=== PATIENT | female | born 1935 | race Caucasian/White ===

== ENCOUNTER → 2016-08-02 | Outpatient (CLI) | payer MEDICARE, BC ==
[~2016-08-02] MED LIST: AMLODIPINE BESY10 MG PO; ASPIRIN81 M2 PO; AZITHROMYCIN500 MG PO; BACTROBAN15 GM TOP; CALCIUM + D 6001 TA1 PO; CALCIUM 500 + D1 TAB PO; CALCIUM 600 + D1 TAB PO; CALCIUM 600-VI1 EACH PO; CALCIUM500 M1 PO; CENTRUM PO; CYMBALTA PO; DESYREL100 MG PO; DICLOXAXILLIN250 MG PO; DOMPERIDONE PO; EFFEXOR75 M3 PO; EFFEXOR75 MG PO; GABAPENTIN600 MG PO; GAVISCON1 TAB PO; GRALISE1 EACH PO; HIBICLENS 4% L120 ML TOP; HYDRALAZINE HC100 MG PO; LANSOPRAZOLE30 MG PO; LISINOPRIL20 MG PO; LOSARTAN POTASS50 MG PO; MEDROL4 MG/DOSE- PO; MOBIC15 MG PO; MULTI-DAY VITAM1 TAB PO; MULTI-DAY1 TAB PO; MULTI-VITAMIN1 EAC1 PO; MULTIVITAMINS1 EAC3 PO; NEXIUM PO; NORVASC PO; NORVASC10 MG PO; OMEPRAZOLE40 M1 PO; OMEPRAZOLE40 MG PO; PATIENT'S PHARMACY; PREVACID PO; PRILOSEC PO; PRISTIQ100 MG PO; RELAFEN PO; SILVADENE TOP; SKELAXIN PO; TEMOVATE30 GM TOP; TOPROL XL100 MG PO; TOPROL XL50 MG PO; TRAZODONE PO; VICODIN 5/500 T1 TAB PO; ZOFRAN ODT4 MG PO; ZOFRAN PO
--- NOTE | ~2016-08-02 | CT71 ---
[facility] A Service of [facility] RADIOLOGY TEXT RESULTS PATIENT: JOVANA KILPATRICK LOCATION: [facility] : 37 UNIT #: [id number] AGE: [address]: Tim Lozano MD SEX: F ORDER DR: [id number] [facility] [address]. [place], [place] [address] [id number] O MR#: [id number] [facility] #: [id number] NAME: JOVANA KILPATRICK. : 1935 SEX: F STUDY DATE/TIME: 08/02/2016 9:21 UNIT: [facility] ROOM: STUDY DESCRIPTION: CT Head Wo Contrast Attending Physician: Tim Lozano M.D. Referring Physician: Tim Lozano M.D. Ordering Physician: Tim Lozano M.D. Primary Care Physician: Tim Lozano M.D. MEDICAL IMAGING REPORT This report is preliminary unless electronic signature is present EXAM Head CT no contrast, 08/02/2016 PROCEDURE Axial unenhanced head CT. This CT exam was performed with one or more of the following radiation dose reduction techniques: Automatic exposure control, adjustment of mA and/or kV according to patient size, and iterative reconstruction. COMPARISON None. CLINICAL HISTORY Memory loss for 1 year. Headache for 1 year. FINDINGS There are nonspecific white matter changes, but there is no hemorrhage or hydrocephalus or extraaxial fluid collection. There is minimal volume loss but certainly not greater than expected for age. The extracranial soft tissues are unremarkable. The skull base and calvarium are normal. IMPRESSION Nonspecific probably small vessel-type white matter change, no hemorrhage or mass. There is volume loss as well but both are fairly minimal for patient age. No acute findings. Dictated by... Zacarias Nixon M.D. THIS IS AN ELECTRONICALLY VERIFIED REPORT Zacarias Nixon M.D. at 08/04/2016 11:48 AM TEV/psc [facility] A Service of [facility] RADIOLOGY TEXT RESULTS PATIENT: JOVANA KILPATRICK LOCATION: [facility] #: [id number] : 37 UNIT #: [id number] AGE: [address]: Tim Lozano MD SEX: F ORDER DR: TD: 08/02/2016 22:07 JOB #: [id number] MEDICAL IMAGING REPORT COPY
--- NOTE | ~2016-08-02 | MY11 ---
[facility] A Service of [facility] RADIOLOGY TEXT RESULTS PATIENT: JOVANA KILPATRICK LOCATION: [facility] : 37 UNIT #: [id number] AGE: [address]: Tim Lozano MD SEX: F ORDER DR: [id number] [place] [id number] [facility]. [place], [place] [address] [id number] O MR#: [id number] Acc #: [id number] NAME: JOVANA KILPATRICK. : 1935 SEX: F STUDY DATE/TIME: 08/02/2016 10:17 UNIT: [facility] ROOM: STUDY DESCRIPTION: MY Mammogram Screening Dig Rishabh Attending Physician: Tim Lozano M.D. Referring Physician: Tim Lozano M.D. Ordering Physician: Tim Lozano M.D. Primary Care Physician: Tim Lozano M.D. MEDICAL IMAGING REPORT This report is preliminary unless electronic signature is present EXAM Bilateral digital screening with CAD INDICATION routine screening. No current complaints. No family history of breast cancer. COMPARISON 03/04/2015, 03/01/2014 and 07/15/2010 FINDINGS MLO and CC digital views of each breast were obtained. There are also exaggerated lateral CC views of each breast. The breasts have scattered fibroglandular densities. There are no masses or abnormal calcifications. There has been no change. There is a left-sided pacemaker. IMPRESSION No change and no evidence of malignancy. Patients over the age of 40 are entered into a reminder system with target due date for the next mammogram. A result letter will also be sent to the patient. BIRADS: 1 Negative Dictated by... Prabhjot Velasquez M.D. THIS IS AN ELECTRONICALLY VERIFIED REPORT Prabhjot Velasquez M.D. at 08/02/2016 4:54 PM Annabella TD: 08/02/2016 16:46 [facility] A Service [facility] RADIOLOGY TEXT RESULTS PATIENT: JOVANA KILPATRICK LOCATION: [facility] : 37 UNIT #: [id number] AGE: [address]: Tim Lozano MD SEX: F ORDER DR: BJ #: [id number] MEDICAL IMAGING REPORT COPY
--- NOTE | ~2016-08-02 | CT52 ---
[facility] A Service of [facility] RADIOLOGY TEXT RESULTS PATIENT: JOVANA KILPATRICK LOCATION: [facility] : 37 UNIT #: [id number] AGE: [address]: Tim Lozano MD SEX: F ORDER DR: [id number] [facility] [address] [facility]. [place], [place] [address] [id number] O MR#: [id number] [facility] #: [id number] NAME: JOVANA KILPATRICK. : 1935 SEX: F STUDY DATE/TIME: 08/02/2016 9:31 UNIT: [facility] ROOM: STUDY DESCRIPTION: CT Cervical Spine Wo Cont Attending Physician: Tim Lozano M.D. Referring Physician: Tim Lozano M.D. Ordering Physician: Tim Lozano M.D. Primary Care Physician: Tim Lozano M.D. MEDICAL IMAGING REPORT This report is preliminary unless electronic signature is present EXAM Cervical spine CT, no contrast, 08/02/2016 PROCEDURE Axial unenhanced cervical spine CT with multiplanar reformats. This CT exam was performed with one or more of the following radiation dose reduction techniques: Automatic exposure control, adjustment of mA and/or kV according to patient size, and iterative reconstruction. COMPARISON None. CLINICAL HISTORY Intermittent headache and neck pain for 1 year. FINDINGS There is a very slight reversal of lordosis centered at 5-6 but alignment is otherwise normal. There is loss of disc height and degenerative change at 5-6 and 6-7. There is no fracture or aggressive appearing bone erosion or destruction. There are mild spinal degenerative changes without acute abnormality. At 2-3, the canal and foramina are normal. At 3-4, there is no canal stenosis and minimal bilateral foraminal narrowing. At 4-5, there is no canal or foraminal stenosis. At 5-6, there is minimal canal narrowing and mild bilateral foraminal narrowing. [facility] A Service of [facility] RADIOLOGY TEXT RESULTS PATIENT: JOVANA KILPATRICK [facility] #: [id number] : 37 UNIT #: [id number] AGE: [address]: Tim Lozano MD SEX: F ORDER DR: At 6-7, there is minimal canal narrowing and dlwg-lq-guqkluau left and mild or uvem-og-kpmjowjs right foraminal narrowing. At 7-1, there is no canal or foraminal stenosis. IMPRESSION Degenerative changes as above, no acute-appearing abnormality at any level. Dictated by... Zacarias Nixon M.D. THIS IS AN ELECTRONICALLY VERIFIED REPORT Zacarias Nixon M.D. at 08/04/2016 11:48 AM TEV/simón TD: 08/03/2016 03:35 JOB #: [id number] MEDICAL IMAGING REPORT COPY
== END | disposition home or self-care (01) ==
LOC: CCAT 08:20
DX: Z12.31 Encounter for screening mammogram for malignant neoplasm of breast (principal); R41.3 Other amnesia; M50.30 Other cervical disc degeneration, unspecified cervical region; M47.812 Spondylosis without myelopathy or radiculopathy, cervical region
CPT/HCPCS: 70450; 72125; G0202

== ENCOUNTER 2016-08-21 20:51 | Emergency (ER) | payer MEDICARE, BC ==
[~2016-08-21 20:51] MED LIST changes: -ASPIRIN81 M2 PO; -AZITHROMYCIN500 MG PO; -CALCIUM500 M1 PO; -DESYREL100 MG PO; -EFFEXOR75 M3 PO; -HYDRALAZINE HC100 MG PO; -LOSARTAN POTASS50 MG PO; -MULTIVITAMINS1 EAC3 PO; -PATIENT'S PHARMACY; -PRILOSEC PO; -TOPROL XL50 MG PO
== END 2016-08-21 21:30 | disposition home or self-care (01) ==
LOC: CFTX 20:51
DX: L29.9 Pruritus, unspecified (principal); T46.1X5A Adverse effect of calcium-channel blockers, initial encounter; I10 Essential (primary) hypertension; K21.9 Gastro-esophageal reflux disease without esophagitis; Z90.49 Acquired absence of other specified parts of digestive tract; Z90.89 Acquired absence of other organs; Z79.899 Other long term (current) drug therapy; Z88.2 Allergy status to sulfonamides; Z88.8 Allergy status to other drugs, medicaments and biological substances
CPT/HCPCS: 99282

== ENCOUNTER → 2017-01-12 | Outpatient (CLI) | payer MEDICARE, BC ==
[~2017-01-12] MED LIST changes: +ASPIRIN81 M2 PO; +AZITHROMYCIN500 MG PO; +CALCIUM500 M1 PO; +DESYREL100 MG PO; +EFFEXOR75 M3 PO; +HYDRALAZINE HC100 MG PO; +LOSARTAN POTASS50 MG PO; +MULTIVITAMINS1 EAC3 PO; +PATIENT'S PHARMACY; +PRILOSEC PO; +TOPROL XL50 MG PO
--- NOTE | ~2017-01-12 | CT2 ---
[facility] A Service of [facility] RADIOLOGY TEXT RESULTS PATIENT: JOVANA KILPATRICK LOCATION: [facility] : 37 UNIT #: [id number] AGE: [address]: Tim Lozano MD SEX: F ORDER DR: [id number] [facility] [address] [place], [place] [address] [id number] O MR#: [id number] Acc #: [id number] NAME: JOVANA KILPATRICK. : 1935 SEX: F STUDY DATE/TIME: 01/12/2017 14:22 UNIT: [facility] ROOM: STUDY DESCRIPTION: CT Abd and Pelv W Cont Attending Physician: Tim Lozano M.D. Referring Physician: Tim Lozano M.D. Ordering Physician: Tim Lozano M.D. Primary Care Physician: Tim Lozano M.D. MEDICAL IMAGING REPORT This report is preliminary unless electronic signature is present EXAM CT abdomen and pelvis. INDICATIONS Right inguinal pain for 2 months. Increasing in severity. Right lower quadrant abdominal pain for [address] of the abdomen and pelvis with p.o. and IV contrast (100 mL Isovue-370 IV contrast). Coronal and sagittal reconstructions were obtained. This CT exam was performed with one or more of the following radiation dose reduction techniques: automatic exposure control, adjustment of mA and/or kV according to patient size, and iterative reconstruction. COMPARISON CT abdomen and pelvis dated 01/20/2016 and 07/31/2015. FINDINGS There is some parenchymal scarring or atelectasis in both lung bases. The solid abdominal organs are within normal. The gallbladder is surgically absent. The bowel is not distended. No pathologically enlarged retroperitoneal or mesenteric lymph nodes. Abdominal aorta is normal in caliber. PELVIS: No pelvic mass. The bladder is unremarkable. The uterus is surgically absent. Ovaries are small. No enlarged pelvic or inguinal lymph nodes. There is generalized osteopenia of the axial skeleton. No acute osseous abnormalities. IMPRESSION [facility] A Service of [facility] RADIOLOGY TEXT RESULTS PATIENT: JOVANA KILPATRICK LOCATION: [facility] : 37 UNIT #: [id number] AGE: [address]: Tim Lozano MD SEX: F ORDER DR: No acute findings in the abdomen or pelvis. No findings to account for the right-sided abdominal pain/right inguinal pain. Dictated by... Zbigniew Angel M.D. THIS IS AN ELECTRONICALLY VERIFIED REPORT Zbigniew Angel M.D. at 01/13/2017 8:41 AM Tana TD: 01/12/2017 19:04 JOB #: [id number] MEDICAL IMAGING REPORT Page 1 of 1 COPY
[2017-01-12 14:01] LABS: POC - CREATININE 0.83 mg/dL (0.44-1.03); POC - GFR >60.0 mL/min (>60)
== END | disposition home or self-care (01) ==
LOC: CCAT 13:07
PROVIDERS: Internal Medicine
DX: R10.11 Right upper quadrant pain (principal); R11.2 Nausea with vomiting, unspecified; R19.7 Diarrhea, unspecified
CPT/HCPCS: 74177; 82565; Q9967

== ENCOUNTER 2017-01-31 08:26 | Observation (INO) | payer MEDICARE, BC ==
[~2017-01-31] VITALS: Ht 167.6 cm; Wt 81.6 kg
--- NOTE | ~2017-01-31 | EKG ---
PATIENT: JOVANA KILPATRICK UNIT #: [id number] Ventricular Rate: 89 BPM Atrial Rate: 61 BPM QRS Duration: 90 ms Q-T Interval: 268 ms QTC Calculation(Bezet): 326 ms P [place]: 12 degrees Calculated R [place]: -15 degrees Calculated T [place]re: 48 degrees Diagnosis Line: Normal sinus rhythm Diagnosis Line: pacemaker malfunction,failure to sense by Diagnosis Line: theatrial lead Diagnosis Line: Nonspecific T wave abnormality Diagnosis Line: Abnormal ECG Diagnosis Line: When compared with ECG of 31-JAN-2017 09:57, Diagnosis Line: (unconfirmed) Diagnosis Line: pacemaker malfunction is new Diagnosis Line: Confirmed by VERITO MENDEZ MD ([id number]) on 02/02/2017 Diagnosis Line: 4:50:32 PM INTERPRETING MD: VANESSA GONSALEZ
--- NOTE | ~2017-01-31 | EKG ---
PATIENT: JOVANA KILPATRICK UNIT #: [id number] Ventricular Rate: 62 BPM Atrial Rate: 62 BPM P-R Interval: 258 ms QRS Duration: 90 ms Q-T Interval: 454 ms QTC Calculation(Bezet): 460 ms P [place]: 54 degrees Calculated R [place]: -22 degrees Calculated T [place]: 54 degrees Diagnosis Line: Atrial-paced rhythm with prolonged AV conduction Diagnosis Line: Abnormal ECG Diagnosis Line: When compared with ECG of 31-JAN-2017 08:35, Diagnosis Line: (unconfirmed) Diagnosis Line: Electronic atrial pacemaker has replaced Diagnosis Line: Electronic ventricular pacemaker Diagnosis Line: Vent. rate has decreased BY 41 BPM Diagnosis Line: Confirmed by TANYA HOLLIS MD ([id number]) on 01/31/2017 Diagnosis Line: 2:07:25 PM INTERPRETING MD: TELMA GONSALEZ
--- NOTE | ~2017-01-31 | EKG ---
PATIENT: JOVANA KILPATRICK UNIT #: [id number] Ventricular Rate: 70 BPM Atrial Rate: 70 BPM P-R Interval: 148 ms QRS Duration: 88 ms Q-T Interval: 428 ms QTC Calculation(Bezet): 462 ms P [place]: 48 degrees Calculated R [place]: -3 degrees Calculated T [place]: 40 degrees Diagnosis Line: Normal sinus rhythm Diagnosis Line: Normal ECG Diagnosis Line: When compared with ECG of 31-JAN-2017 13:27, Diagnosis Line: (unconfirmed) Diagnosis Line: Nonspecific T wave abnormality, improved in Diagnosis Line: Inferior leads Diagnosis Line: Nonspecific T wave abnormality no longer evident Diagnosis Line: in Anterolateral leads Diagnosis Line: QT has lengthened Diagnosis Line: pacemaker function is not seen Diagnosis Line: Confirmed by VERITO MENDEZ MD ([id number]) on 02/02/2017 Diagnosis Line: 4:53:42 PM INTERPRETING MD: VANESSA GONSALEZ
--- NOTE | ~2017-01-31 | CR63 ---
[facility] A Service of [facility] RADIOLOGY TEXT RESULTS PATIENT: JOVANA KILPATRICK LOCATION: [place] [address] : 37 UNIT #: [id number] AGE: [address]: Jw Velazco MD SEX: F ORDER DR: [id number] [facility] [address] [place], [place] [address] [id number] E MR#: [id number] Acc #: [id number] NAME: JOVANA KILPATRICK. : 1935 SEX: F STUDY DATE/TIME: 01/31/2017 10:33 UNIT: [facility] ROOM: STUDY DESCRIPTION: CR Chest 2 View Attending Physician: Seun Askew M.D. Ordering Physician: Seun Askew M.D. Primary Care Physician: Tim Lozano M.D. MEDICAL IMAGING REPORT This report is preliminary unless electronic signature is present EXAM Chest PA and lateral, 01/31/2017 HISTORY Right side chest pain and shortness of breath beginning this morning at 02:00 a.m. Benign essential hypertension FINDINGS The cardiac and mediastinal structures are stable compared with early earlier today at 08:52 a.m. Cardiac pacemaker is unchanged. There is poor inspiratory result with decrease in the atelectasis or infiltrate at the right lung base. Atelectatic changes left base. The upper lungs are clear. No pneumothorax. IMPRESSION Decrease in the atelectasis or infiltrate at the right lung base compared with earlier today at 08:52 a.m. Dictated by... Harvinder Adames M.D. THIS IS AN ELECTRONICALLY VERIFIED REPORT Harvinder Adames M.D. at 02/01/2017 10:34 AM PATRICIO/elliott TD: 01/31/2017 10:55 JOB #: [id number] MEDICAL IMAGING REPORT Page 1 of 1 COPY
--- NOTE | ~2017-01-31 | US84 ---
[id number] [facility] [address] [place], [place] [address] [id number] I MR#: [id number] Acc #: [id number] NAME: JOVANA KILPATRICK : 1935 SEX: F STUDY DATE/TIME: 02/01/2017 13:35 UNIT: [facility] ROOM: 575 STUDY DESCRIPTION: US LE Veins Complete Rishabh Stdy Attending Physician: Jw Velazco M.D. Ordering Physician: Tim Lozano M.D. Primary Care Physician: Tim Lozano M.D. MEDICAL IMAGING REPORT This report is preliminary unless electronic signature is present EXAM Lower extremity venous ultrasound bilateral, 02/01/2017. HISTORY Bilateral pain 2 months. TECHNIQUE Venous ultrasound examination of both lower extremities was performed using grayscale, spectral Doppler and color flow Doppler imaging. FINDINGS The examination is negative. There is no evidence of deep venous thrombus from the groin to the lower calf bilaterally. Visualized greater saphenous veins are also patent. IMPRESSION Negative examination. No evidence of lower extremity deep venous thrombosis. Dictated by... Geo Muro M.D. THIS IS AN ELECTRONICALLY VERIFIED REPORT Geo Muro M.D. at 02/02/2017 6:17 PM JOSEPH/yue TD: 02/01/2017 21:48 JOB #: [id number] MEDICAL IMAGING REPORT Page 1 of 1 COPY
--- NOTE | ~2017-01-31 | HP ---
Unit #: [id number] #: [id number] Patient: JOVANA KILPATRICK [id number] [place], [place] [address] [id number] I MR#: [id number] NAME: JOVANA KILPATRICK. ROOM: 67856 Age: 82 Sex: F Admission Date: 01/31/2017 : 1935 Attending Physician: Jw Velazco M.D. Primary Care Physician: Tim Lozano M.D. HISTORY AND PHYSICAL REASON FOR ADMISSION Chest pain. HISTORY OF PRESENT ILLNESS The patient is an 82-year-old, female who has a history of syncope with significant bradycardia, status post permanent pacemaker in July 2015. She had a stress test done in February of last year that was negative for ischemia. Patient presents with a two-day history of what she describes as an intermittent sharp pain in the right chest radiating up into the right neck and back. She states that there are no ameliorating factors. Sometimes it gets worse with movement. It did get worse with inspiration. She now has a constant heaviness in the right chest since coming to the emergency room. PAST MEDICAL HISTORY Significant for syncope, status post permanent pacemaker for bradyarrhythmias and pauses, hypertension, hyperlipidemia, GERD, spinal stenosis, stress test February 2016 negative for ischemia, left lower extremity small cell carcinoma. SOCIAL HISTORY Patient is an ex-smoker of many years. No alcohol or drug abuse. FAMILY HISTORY With sisters that of coronary artery disease. DIAGNOSTIC STUDIES LABORATORY: White blood cell count 9.5, hemoglobin 14.5, hematocrit 42.5, platelet count 183, sodium 141, potassium 4.1, chloride 104, CO2 27, BUN 16, creatinine 0.6, glucose 107. IMAGING: Chest x-ray shows infiltrate versus atelectasis in the right lower lobe. ALLERGIES Allergy to lidocaine and sulfa. HOME MEDICATIONS Gabapentin 600 mg daily, Prilosec 40 mg daily, hydralazine 100 mg b.i.d., Effexor 75 mg at bedtime, Desyrel 200 mg at bedtime, losartan 50 mg b.i.d., Toprol XL 100 mg b.i.d., multivitamin daily, calcium every a.m. PHYSICAL EXAMINATION GENERAL: Patient is awake and alert in no apparent distress. Color is Unit #: [id number] #: [id number] Patient: JOVANA KILPATRICK. SKIN: Skin is warm and dry. VITAL SIGNS: Afebrile, heart rate 61, blood pressure 186/87. HEENT: Normal carotid upstrokes. No auscultated bruit. Negative JVD lying supine. Negative hepatojugular reflux. CHEST: Respirations are regular and unlabored at rest. Bilateral breath sounds have good air entry throughout lung hendrickson. No crackles, rubs, or wheezes are heard. HEART: S1 and S2. Regular rate and rhythm. No murmurs, rubs, or gallops. ABDOMEN: Soft, nontender, and nondistended. Positive bowel sounds in all four quadrants. No ascites noted. NEUROLOGICAL: No focal motor or sensory deficits. IMPRESSION 1. Chest pain/angina pectoris. 2. Possible right lower lobe pneumonia. 3. Pacemaker malfunction. 4. Hypertension. 5. Hyperlipidemia. 6. Family history of coronary disease. PLAN Will start on IV Rocephin for possible pneumonia. Start topical nitrates. IV morphine for the pain. Therapeutic dose of Lovenox. Aspirin. Will rule out for ME with serial cardiac enzymes. Symptoms could be that of angina given she has a negative stress test, but is still having pain. Recommend coronary angiography. The risks and benefits have been discussed such as (1) , arrhythmia, ME, CVA, bleeding, and . Patient is agreeable. Will ask Dr. Lozano to see in a.m. for medical management. Dictated by Nikki Barajas APRN for Maria Antonia Toro/mike TD: 01/31/2017 13:17 JOB #: [id number] HISTORY AND PHYSICAL Page 1 of 1 X X HISTORY AND PHYSICAL
--- NOTE | ~2017-01-31 | EKG ---
PATIENT: JOVANA KILPATRICK UNIT #: [id number] Ventricular Rate: 105 BPM Atrial Rate: 105 BPM QRS Duration: 28 ms Q-T Interval: 208 ms QTC Calculation(Bezet): 274 ms P [place]: 75 degrees Calculated R [place]: 36 degrees Calculated T [place]: 93 degrees Diagnosis Line: Ventricular-paced rhythm with frequent AV Diagnosis Line: dual-paced complexes and with frequent Premature Diagnosis Line: ventricular complexes Diagnosis Line: Abnormal ECG Diagnosis Line: When compared with ECG of 31-JAN-2017 09:56, Diagnosis Line: (unconfirmed) Diagnosis Line: Premature ventricular complexes are now Present Diagnosis Line: Premature supraventricular complexes are no longer Diagnosis Line: Present Diagnosis Line: Vent. rate has increased BY 12 BPM Diagnosis Line: Confirmed by TANYA HOLLIS MD ([id number]) on 01/31/2017 Diagnosis Line: 2:07:33 PM INTERPRETING MD: TELMA GONSALEZ
--- NOTE | ~2017-01-31 | CR72 ---
[facility] A Service of [facility] RADIOLOGY TEXT RESULTS PATIENT: JOVANA KILPATRICK LOCATION: [place] [address] : 37 UNIT #: [id number] AGE: [address]: Jw Velazco MD SEX: F ORDER DR: [id number] [facility] [address] [place], [place] [address] [id number] E MR#: [id number] Acc #: [id number] NAME: JOVANA KILPATRICK. : 1935 SEX: F STUDY DATE/TIME: 01/31/2017 8:52 UNIT: [facility] ROOM: STUDY DESCRIPTION: CR Chest Single View Portable Attending Physician: Seun Askew M.D. Ordering Physician: Seun Askew M.D. Primary Care Physician: Tim Lozano M.D. MEDICAL IMAGING REPORT This report is preliminary unless electronic signature is present EXAM Portable chest, 01/31/2017 HISTORY Sharp right side chest pain beginning today. Benign essential hypertension FINDINGS Mild cardiac enlargement is stable compared with 08/01/2015. Cardiac pacemaker leads are in the right atrium and right ventricle. There is no pneumothorax. There is poor inspiratory result and elevation of the right hemidiaphragm with infiltrate or atelectasis in the right lower lobe and there is discoid atelectasis at the left base. The upper lungs are clear. There are no pleural effusions. IMPRESSION 1. Stable cardiac enlargement compared with 08/01/2015. Cardiac pacemaker leads right atrium and right ventricle. No pneumothorax. 2. Poor inspiratory result and elevation of the right hemidiaphragm with infiltrate and/or atelectasis right lower lobe. Dictated by... Harvinder Adames M.D. THIS IS AN ELECTRONICALLY VERIFIED REPORT Harvinder Adames M.D. at 02/01/2017 10:34 AM Garret TD: 01/31/2017 09:28 JOB #: [id number] MEDICAL IMAGING REPORT Page 1 of 1 COPY
--- NOTE | ~2017-01-31 | CO ---
Unit #: [id number] #: [id number] Patient: JOVANA KILPATRICK [id number] [address] [place], [place] [address] [id number] I MR#: [id number] NAME: JOVANA KILPATRICK. ROOM: 575 Age: 82 Sex: F Admission Date: 01/31/2017 : 1935 Attending Physician: Jw Velazco M.D. Primary Care Physician: Tim Lozano M.D. 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 It is in the right axillary/right upper chest area anteriorly. It seems to be worse with cough, worse with deep breath. In the emergency room, she was evaluated, had negative cardiac enzymes, unremarkable EKG. She was given nitroglycerin as well as Maalox without any relief. She has had chest pain off and on overnight. Was admitted by cardiology. Repeat cardiac enzymes remained within normal limits. EKG this morning is completely within normal limits. She is scheduled for a heart cath today with results to follow. The patient has no other complaints on review of systems. She has had no recent trauma, fever, cough or any other significant findings. PAST MEDICAL HISTORY She has stated allergies to lidocaine, sulfa drugs, nitroglycerin. MEDICATIONS Her medications prior to admission: 1. Gabapentin 600 mg p.o. q. h.s. 2. Prilosec 40 mg p.o. daily. 3. Hydralazine 100 mg b.i.d. 4. Effexor XR 75 mg daily. 5. Desyrel 200 mg q. h.s. 6. Losartan 50 mg b.i.d. 7. Toprol XL 100 mg b.i.d. 8. Multivitamins, 1 daily. 9. Calcium, 1 daily. PAST MEDICAL HISTORY 1. Chronic insomnia. 2. Lumbar spine stenosis. 3. Cervical spinal stenosis. 4. GE reflux disease. 5. Fibromyalgia syndrome. 6. Sinus arrest requiring permanent pacemaker. 7. Hypertension. PAST SURGICAL HISTORY 1. Partial hysterectomy. 2. Cholecystectomy. Unit #: [id number] #: [id number] Patient: JOVANA KILPATRICK 3. Appendectomy. 4. Polypectomy. 5. Permanent pacemaker. SOCIAL HISTORY , not employed. Nonsmoker, nondrinker. No street drug use. FAMILY HISTORY Noncontributory. PHYSICAL EXAM GENERAL: She is awake, alert, oriented x3, in no acute distress. VITAL SIGNS: Afebrile. Pulse 73, respirations 20, blood pressure 93/50. O2 sat 94% on room air. HEENT: HEENT is unremarkable. NECK: Neck was supple without JVD, bruits, adenopathy or thyromegaly. CHEST: Clear to auscultation. Tender in the right costosternal area without any rash or bruising. HEART: Heart has a regular rate and rhythm without any murmurs, rubs or gallops. ABDOMEN: Abdomen was soft, nondistended, nontender with positive bowel sounds and no hepatosplenomegaly. EXTREMITIES: Extremities showed no clubbing, cyanosis or edema. She has radiation changes to the right anterior ankle area with a small scab centrally located. AND RECTAL: and rectal are deferred. NEUROLOGIC: Neurologic exam is grossly intact. DIAGNOSTIC STUDIES LAB VALUES: CBC normal. Cardiac enzymes normal x4 sets. CMP normal. Lipase normal. PTT 22.5, PT/INR 1.0. CARDIOVASCULAR: First EKG shows pacemaker firing off appropriately with occasional interpolated normal beats. EKG this morning shows a normal sinus rhythm and is otherwise within normal limits. IMAGING: Chest x-ray shows stable cardiomegaly, (1) pacemaker. Elevation of the right hemidiaphragm with mild atelectasis. IMPRESSION 1. Atypical chest pain. 2. Hypertension. 3. Insomnia. 4. Lumbar spinal stenosis. 5. Fibromyalgia syndrome. 6. Status post permanent pacemaker. 7. Major depressive disorder. PLAN Patient is scheduled for a cath this morning. Will check a D-dimer and if it is positive, perform V/Q scan and bilateral lower extremity venous Dopplers. Further evaluation pending results of above. Unit #: [id number] #: [id number] Patient: POPHAMJOVANA by... Maria Antonia Meyer/abhishek TD: 02/02/2017 08:13 JOB #: [id number] CONSULTATION REPORT Page 1 of 1 X Tim Lozano MD CONSULTATION REPORT
--- NOTE | ~2017-01-31 | NM69 ---
[facility] A Service of [facility] & [facility] RADIOLOGY TEXT RESULTS PATIENT: JOVANA KILPATRICK [facility] 575-01 : 37 UNIT #: [id number] AGE: [address]: Jw Velazco MD SEX: F ORDER DR: [id number] [facility] [address] [place], [place] [address] [id number] I MR#: [id number] Acc #: [id number] NAME: JOVANA KILPATRICK. : 1935 SEX: F STUDY DATE/TIME: 02/01/2017 14:25 [facility]IT[facility] ROOM: [facility] STUDY DESCRIPTION: NM Pulm Vent and Perf Attending Physician: Jw Velazco M.D. Ordering Physician: Tim Lozano M.D. Primary Care Physician: Tim Lozano M.D. MEDICAL IMAGING REPORT This report is preliminary unless electronic signature is present EXAM Ventilation-perfusion study of the lungs INDICATIONS Elevated D-dimer with chest pain for 1 day. There is a comparison chest x-ray from yesterday. FINDINGS The ventilation study was done with 32.8 mCi of Tc-99m DTPA in aerosol form and the perfusion study was done with 6 mCi of Tc-99m MAA. The perfusion and ventilation images appear normal. IMPRESSION Normal ventilation-perfusion study of the lungs. No evidence of pulmonary embolus. STAT * RESULT Dictated by... Prabhjot Velasquez M.D. THIS IS AN ELECTRONICALLY VERIFIED REPORT Prabhjot Velasquez M.D. at 02/01/2017 3:57 PM FEL/psc TD: 02/01/2017 15:48 JOB #: [id number] MEDICAL IMAGING REPORT Page 1 of 1 COPY
[~2017-01-31 08:26] MED LIST changes: -ASPIRIN81 M2 PO; -AZITHROMYCIN500 MG PO; -CALCIUM500 M1 PO; -DESYREL100 MG PO; -EFFEXOR75 M3 PO; -HYDRALAZINE HC100 MG PO; -LOSARTAN POTASS50 MG PO; -MULTIVITAMINS1 EAC3 PO; -PATIENT'S PHARMACY; -PRILOSEC PO; -TOPROL XL50 MG PO
[2017-01-31 09:50] LABS: BASOPHIL# 0.1 X10e3 (0-0.3); BASOPHIL% 0.7 % (0-2.5); EOSINOPHIL# 0.1 X10e3 (0-0.7); HEMATOCRIT 42.5 % (35.0-45.0); HEMOGLOBIN 14.5 gm/dL (12.0-16.0); LYMPHOCYTE# 1.5 X10e3 (1.0-3.5); LYMPHOCYTE% 15.5 % (17.0-45.0); MEAN CELL VOLUME 90.6 FL (83-96); MEAN CORPUSCULAR HEMOGLOBIN 30.9 PG (28-34); MEAN CORPUSCULAR HGB CONC 34.2 g/dL (30-36); MEAN PLATELET VOLUME 8.3 FL (6.5-11.5); MONOCYTE# 0.8 X10e3 (0-1.0); NEUTROPHIL# 7.1 X10e3 (1.5-7.1); NEUTROPHIL% 74.8 % (40-75); PLATELET COUNT 183 X10e3 (140-420); RED BLOOD COUNT 4.69 X10e (3.90-5.30); RED CELL DISTRIBUTION WIDTH 12.9 % (11.0-15.5); WHITE BLOOD COUNT 9.5 X10e3 (4.0-10.5)
[2017-01-31] MEDS ORDERED: EFFEXOR75 M3 PO (09:51)
[2017-01-31] MEDS ORDERED: PATIENT'S PHARMACY (09:51)
[2017-01-31] MEDS ORDERED: GABAPENTIN600 MG PO (09:51)
[2017-01-31] MEDS ORDERED: PRILOSEC PO (09:51)
[2017-01-31] MEDS ORDERED: HYDRALAZINE HC100 MG PO (09:51)
[2017-01-31 09:52] LABS: DIFF IND NO
[2017-01-31] MEDS ORDERED: DESYREL100 MG PO (09:52)
[2017-01-31] MEDS ORDERED: TOPROL XL50 MG PO (09:52)
[2017-01-31] MEDS ORDERED: CALCIUM500 M1 PO (09:52)
[2017-01-31] MEDS ORDERED: MULTIVITAMINS1 EAC3 PO (09:52)
[2017-01-31] MEDS ORDERED: LOSARTAN POTASS50 MG PO (09:52)
[2017-01-31 10:03] LABS: CK TOTAL 45 IU/L (26-140)
[2017-01-31 10:17] LABS: BILIRUBIN, DIRECT 0.1 mg/dL (0.0-0.2); BILIRUBIN,INDIRECT 0.4 mg/dL (0.0-0.9); BILIRUBIN,TOTAL 0.5 mg/dL (0.2-2.0); BUN/CREATININE RATIO 26.66; CALCIUM SERUM 9.4 mg/dL (8.4-10.2); CREATININE SERUM 0.6 mg/dL (0.6-1.4); GLOM FILT RATE Estimated 86.1 mL/min (>60); POTASSIUM 4.1 mmol/L (3.5-5.1); PROTEIN TOTAL SERUM 7.8 g/dL (6.0-8.3)
[2017-01-31 10:46] LABS: PROTHROMBIN TIME (PATIENT) 10.7 SECONDS (10.0-11.7)
[2017-01-31 10:49] LABS: PARTIAL THROMBOPLASTIN TIME 22.5 SECONDS (23.5-31.3)
[2017-01-31 11:17] LABS: POC - CKMB <1.0 ng/mL (0.0-7.9); POC - TROPONIN <0.05 ng/mL (<=0.05)
[2017-01-31 15:37] LABS: CK TOTAL 32 IU/L (26-140)
[2017-01-31 21:42] LABS: CK TOTAL 30 IU/L (26-140)
[2017-02-01 05:59] LABS: PROTHROMBIN TIME (PATIENT) 10.4 SECONDS (10.0-11.7)
[2017-02-01 06:13] LABS: CALCIUM SERUM 8.7 mg/dL (8.4-10.2); CREATININE SERUM 0.7 mg/dL (0.6-1.4); GLOM FILT RATE Estimated 81.8 mL/min (>60); POTASSIUM 4.3 mmol/L (3.5-5.1)
[2017-02-01 06:17] LABS: PARTIAL THROMBOPLASTIN TIME <20.0 SECONDS (23.5-31.3)
[2017-02-01 10:13] LABS: HEMATOCRIT 36.4 % (35.0-45.0); HEMOGLOBIN 12.4 gm/dL (12.0-16.0); MEAN CELL VOLUME 91.2 FL (83-96); WHITE BLOOD COUNT 9.7 X10e3 (4.0-10.5)
[2017-02-01] MEDS ORDERED: AZITHROMYCIN500 MG PO (17:37)
[2017-02-01] MEDS ORDERED: ASPIRIN81 M2 PO (17:39)
== END 2017-02-01 19:14 | disposition home or self-care (01) ==
LOC: CED 08:26 → CEDOF 12:00 → CED 12:50 → C5C 12:50 → CEDOF 14:18 → C5C 02-01 19:14
PROVIDERS: Emergency Medicine; Internal Medicine Cardiovascular Disease
DX: I20.9 Angina pectoris, unspecified (principal); I10 Essential (primary) hypertension; E78.5 Hyperlipidemia, unspecified; K21.9 Gastro-esophageal reflux disease without esophagitis; Z87.891 Personal history of nicotine dependence; Z82.49 Family history of ischemic heart disease and other diseases of the circulatory system; Z88.2 Allergy status to sulfonamides; Z88.8 Allergy status to other drugs, medicaments and biological substances; Z79.899 Other long term (current) drug therapy; Z95.0 Presence of cardiac pacemaker
CPT/HCPCS: 36415; 71010; 71020; 78582; 80048; 80076; 82550; 82553; 83690; 84484; 85025; 85027; 85379; 85610; 85730; 93005; 93970; 96372; 96374; 96375; 96376; 99152; 99153; 99285; A9540; A9567; C1769; C1887; C1894; G0378; J0696; J1644; J1650; J2250; J2270; J3010

== ENCOUNTER → 2017-02-16 | Outpatient (CLI) | payer MEDICARE, BC ==
[~2017-02-16] MED LIST changes: +ASPIRIN81 M2 PO; +AZITHROMYCIN500 MG PO; +CALCIUM500 M1 PO; +DESYREL100 MG PO; +EFFEXOR75 M3 PO; +HYDRALAZINE HC100 MG PO; +LOSARTAN POTASS50 MG PO; +MULTIVITAMINS1 EAC3 PO; +PATIENT'S PHARMACY; +PRILOSEC PO; +TOPROL XL50 MG PO
--- NOTE | ~2017-02-16 | CT57 ---
[facility] A Service of [facility] & [facility] RADIOLOGY TEXT RESULTS PATIENT: JOVANA KILPATRICK [facility] UNIT #: [id number] AGE: [address]: Tim Lozano MD SEX: F ORDER DR: [id number] [facility] [address] [place], [place] [address] [id number] O MR#: [id number] [facility] #: [id number] NAME: JOVANA KILPATRICK. : 1935 SEX: F STUDY DATE/TIME: 02/16/2017 9:37 UNIT: [facility] ROOM: STUDY DESCRIPTION: CT Chest Wo Cont Attending Physician: Tim Lozano M.D. Referring Physician: Tim Lozano M.D. Ordering Physician: Tim Lozano M.D. Primary Care Physician: Tim Lozano M.D. MEDICAL IMAGING REPORT This report is preliminary unless electronic signature is present EXAM CT chest without contrast. Date: 02/16/2017 HISTORY Cough and shortness of breath for 2 weeks. Additional history of cardiac disease, gastroesophageal reflux disease, hypertension. COMPARISON VQ lung scan, 02/01/2017. Bilateral lower extremity Doppler venous ultrasound, 02/01/2017. PA lateral chest, 01/31/2017. CT chest PE protocol, 02/12/2012. CT abdomen and pelvis, 01/12/2017. PROCEDURE 5 mL axial images through the chest without contrast. Sagittal and coronal reformatted images were obtained. This CT exam was performed with one or more of the following radiation dose reduction techniques: Automatic exposure control, adjustment of mA and/or kV according to patient size, and iterative reconstruction. FINDINGS Small to moderate concentric pericardial effusion is present, with maximal thickness along the left ventricular margin measuring up to 1.6 cm. The pericardium appears generally thickened. Findings raise the possibility of acute pericarditis. Very small bilateral pleural effusions are present, left greater than right. The left pleural effusion layers to a depth of 1.2 cm. There is mild bibasilar atelectasis adjacent to the diaphragmatic margins, but no dense lung consolidations are identified. Minimal linear scarring in the right middle lobe. Mild emphysematous changes are present. Left STS. 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 No pneumothorax. Cholecystectomy changes are present. There is mild pancreatic atrophy. Remainder of the included upper abdominal organs are within normal limits. No acute osseous abnormalities are identified. Mildly prominent node anterior to the transverse aorta measures 9 mm short axis, and a right mid paratracheal node measures 8 mm short axis. These are new since 2011 but are favored to represent benign reactive changes and are not pathologically enlarged by CT criteria. IMPRESSION 1. Major pertinent findings have already been discussed with Dr. Lozano prior to the time of this dictation today, 02/16/2017 at 10:22 a.m. 2. Small to moderate pericardial effusion with pericardial thickening. Findings are worrisome for acute pericarditis. 3. Trace bilateral pleural effusions with mild bibasilar atelectasis. No evidence of overt pulmonary edema. 4. Mild COPD. Dictated by... Nikki Sandoval M.D. THIS IS AN ELECTRONICALLY VERIFIED REPORT Nikki Sandoval M.D. at 02/17/2017 9:39 AM [facility]/michael TD: 02/16/2017 12:16 JOB #: [id number] MEDICAL IMAGING REPORT Page 1 of 1 COPY
== END | disposition home or self-care (01) ==
LOC: CCAT 08:58
DX: R05 Cough (principal); I31.3 Pericardial effusion (noninflammatory); J44.9 Chronic obstructive pulmonary disease, unspecified
CPT/HCPCS: 71250